=== PATIENT | female | born 1950 | race Caucasian/White ===

== ENCOUNTER 2020-09-27 12:50 | Emergency (ER) | payer OTHER ==
--- NOTE | 2020-09-27 13:16 | EDM.PDOC ---
ED HPI GENERAL MEDICAL PROBLEM - General Chief Complaint: General Stated Complaint: STROKE RELATED SYMPTOMS Time Seen by Provider: 09/27/20 13:15 Source of Information: Reports: Patient History Limitations: Reports: No Limitations - History of Present Illness INITIAL COMMENTS - FREE TEXT/NARRATIVE: 61-year-old female with a recurring pattern of paresthesias and a slight periocu lar headache today that has happened to her several times over the past few months. Today she developed a temporary numbness of the radial aspect of the hand on the left side, some numbness in the left perioral area and tongue, some blurry vision, these all resolved after 20 minutes but then she developed a mild periorbital headache on the right side. This is happened to her several times in the past over the last few years and then it resolved spontaneously. Today she was thinking that it was lasting a little longer so she called the clinic and they sent her to the emergency room to be evaluated for stroke. On arrival to the ER she had just a slight pain just above and lateral to the right eye but no other symptoms. No recent trauma. No unexplained weight loss or fever. No new medications. She recently had a yearly physical with lab work which was reassuring. Onset: Unknown/Unsure Duration: Waxing/Waning Associated Symptoms: Denies: Confusion, Chest Pain, Cough, Malaise, Nausea/Vomiting, Weakness (Does not get muscle weakness) forehead Pain Score (Numeric/FACES): 1 - Related Data Allergies Allergy/AdvReac Type Severity Reaction Status Date / Time erythromycin base Allergy Abdominal Verified 09/27/20 13:07 Pain Home Meds: Home Meds Alendronate Sodium [Fosamax] 70 mg PO WEEKLY 09/27/20 [History] Latanoprost/Pf [Latanoprost 0.005% Eye Drop] 1 drop EYEBOTH BEDTIME 09/27/20 [History] ED ROS GENERAL - Review of Systems Review Of Systems: See Below Constitutional: Denies: Fever, Chills HEENT: Reports: Vision Change (Blurriness this morning for 20 minutes), Other (Some numbness of the lateral aspect of the tongue) Respiratory: Denies: Shortness of Breath, Cough Cardiovascular: Denies: Chest Pain GI/Abdominal: Denies: Abdominal Pain, Nausea, Vomiting Skin: Denies: Rash Neurological: Reports: Headache, Paresthesia Psychiatric: Denies: Anxiety ED EXAM, GENERAL - Physical Exam Exam: See Below Exam Limited By: No Limitations General Appearance: Alert, No Apparent Distress Eye Exam: Bilateral Eye: Normal Inspection, PERRL Throat/Mouth: Normal Inspection Head: Atraumatic Neck: Supple, Non-Tender Respiratory/Chest: Lungs Clear Cardiovascular: Regular Rate, Rhythm. No: Tachycardia Extremities: Normal Inspection, Other (Normal grasp strength, symmetric strength) Neurological: Alert, Oriented, No Motor/Sensory Deficits, Other (Romberg is negative, no pronator drift. Reflexes are brisk and symmetric) Psychiatric: Normal Affect, Normal Mood Skin Exam: Warm, Dry Course - Vital Signs Last Recorded V/S: Last Vital Signs Temp 97.8 F 09/27/20 13:11 Pulse 90 09/27/20 13:11 Resp 18 09/27/20 13:11 BP 141/85 H 09/27/20 13:11 Pulse Ox 98 09/27/20 13:11 - Re-Assessments/Exams Free Text/Narrative Re-Assessment/Exam: 09/27/20 17:[address] was obtained which was negative. There is a possibility that the chronicity of these in the pattern of symptoms followed by headache could be migraine, but it is also concerning that MS or some other central neurologic source is occurring. She is going to recheck with her primary provider in the next 1 to 2 weeks to discuss either neurology consultation, MRI of the head, or any other evaluation that may be beneficial. No treatment at this time. No urgent need for transfer or further evaluation. Departure - Departure Time of Disposition: 14:21 Disposition: Home, Self-Care 01 Clinical Impression: Paresthesia Headache Qualifiers: Headache type: unspecified Headache chronicity pattern: episodic headache Intractability: not intractable Qualified Code(s): R51.9 - Headache, unspecified - Discharge Information Instructions: Paresthesia, [id number] Referrals: Dorita Rubio MD [Primary Care Provider] - Forms: ED Department Discharge Care Plan Goals: Recheck with your primary provider Dr. Rubio to discuss any further testing and possible MRI of your brain for further evaluation. Return to the emergency room at any time if symptoms are recurring but persistent or significantly worse or you develop other concerns. Sepsis Event Note (ED) - Focused Exam Vital Signs: Vital Signs Temp Pulse Resp BP Pulse Ox 09/27/20 13:11 97.8 F 90 18 141/85 H 98 09/27/20 13:09 97.8 F 90 18 141/85 H 98
--- NOTE | 2020-09-27 14:00 | CT ---
Head wo Cont CLINICAL HISTORY: Numbness and headache COMPARISON: None TECHNIQUE: Transverse scans were obtained from the base of the skull through the vertex without IV contrast on a multislice, multidetector CT scanner. Auto dosage reduction and iterative reconstruction techniques employed. FINDINGS: No focal abnormal parenchymal density is identified.. There is no mass effect, hemorrhage, or extraaxial collection. The basal cisterns and sulci over the convexities are normal. The ventricles are normal for age. IMPRESSION: No acute intracranial process
== END 2020-09-27 14:21 | disposition home or self-care (01) ==
LOC: JP.ED 12:50
DX: R20.2 Paresthesia of skin (principal); R51.9 Headache, unspecified; Z88.1 Allergy status to other antibiotic agents; Z79.899 Other long term (current) drug therapy
CPT/HCPCS: 70450; 70450-26; 99284-25